=== PATIENT | female | born 1980 | race Asian ===

== ENCOUNTER → 2022-01-27 12:52 | Outpatient (CLI) | payer OTHER, SELFPAY ==
--- NOTE | 2022-01-27 | DI.RAD.S_ITS ---
PROCEDURE: XR CERVICAL SPINE 2V OR 3V INDICATIONS: Other chronic pain TECHNIQUE: 3 view(s) of the cervical spine were acquired. COMPARISON: None. FINDINGS: Bones: No fractures or dislocations to the C7-T1 level. The lateral masses of C1 appear intact on the odontoid view. No suspicious bony lesions. Soft tissues: No prevertebral soft tissue swelling. IMPRESSION: No acute radiographic findings. Dictated by: Meghan Viramontes M.D. on 01/27/2022 at 15:18 Approved by: Meghan Viramontes M.D. on 01/27/2022 at 15:18
--- NOTE | 2022-01-27 | DI.RAD.S_ITS ---
PROCEDURE: XR THORACIC SPINE 2V INDICATIONS: Other chronic pain TECHNIQUE: 2 views of the thoracic spine were acquired. COMPARISON: None. FINDINGS: Bones: No fractures or dislocations. No suspicious bony lesions. There is mild intervertebral disc space narrowing of the midthoracic spine. 12 pairs of ribs are noted, and appear intact where visualized. Soft tissues: No paravertebral stripe thickening. IMPRESSION: Mild degenerative change. No acute radiographic findings. Dictated by: Meghan Viramontes M.D. on 01/27/2022 at 15:16 Approved by: Meghan Viramontes M.D. on 01/27/2022 at 15:18
== END ==
PROVIDERS: PCP Internal Medicine; Referring Provider Internal Medicine; Visit Provider Internal Medicine
DX: M54.2 Cervicalgia; M54.6 Pain in thoracic spine; M47.814 Spondylosis without myelopathy or radiculopathy, thoracic region; G89.29 Other chronic pain
CPT/HCPCS: 72040; 72070